=== PATIENT | male | born 1980 | race Caucasian/White ===

== ENCOUNTER 2017-05-12 11:58 | Emergency (ER) | payer SELFPAY ==
[2017-05-12] MEDS ORDERED: Amoxicillin/Potassium Clav 875 MG TAB ONE (12:22)
== END 2017-05-12 12:24 | disposition home or self-care (01) ==
LOC: NAV ERS 11:58
DX: K12.2 Cellulitis and abscess of mouth (principal); F17.210 Nicotine dependence, cigarettes, uncomplicated
CPT/HCPCS: 99282